=== PATIENT | male | born 1960 | race Caucasian/White ===

== ENCOUNTER 2025-03-26 18:04 | Observation (INO) | payer OTHER, SELFPAY ==
[2025-03-26] VITALS (7 sets, daily range): BP systolic 124–152; BP diastolic 73–90; BMI 27.0; BMI 26.6
[2025-03-26 13:34] LABS: Hematocrit 39.6 % (39.0-52.0); Hemoglobin 13.7 g/dL (13.0-18.0); Mean Corp Hgb Conc. 34.6 g/dL (33.0-37.0); Mean Corpuscular Volume 97.5 fL (80.0-94.0); Nucleated Red Blood Cells % 0 % (-); Platelet Count 178 10^3/uL (130-400); Red Cell Dist. Width 12.9 % (11.5-14.5)
[2025-03-26 13:47] LABS: ALT (SGPT) 35 U/L (0-50); AST (SGOT) 37 U/L (17-59); Albumin 4.3 g/dl (3.5-5.0); Alkaline Phosphatase 70 U/L (38-126); Blood Urea Nitrogen 26 mg/dl (9-20); Calcium 9.6 mg/dl (8.4-10.2); Carbon Dioxide 30 mmol/L (22-30); Chloride 103 mmol/L (98-107); Glucose 115 mg/dl (70-99); Potassium 4.3 mmol/L (3.5-5.1); Sodium 138 mmol/L (135-145); Total Protein 7.5 g/dl (6.3-8.2); eGFR > 60.00
[2025-03-26 13:53] LABS: Troponin I < 0.012 ng/ml
--- NOTE | 2025-03-26 15:34 | ED.GENMED ---
History of Present Illness
General
Chief Complaint: Chest Pain
Source: patient
Exam Limitations: none
Time Seen by Provider: 03/26/25 15:33
History of Present Illness
History of Present Illness:
64-year-old male started with some vague chest discomfort chronologically started after his son gave him a hug last night. Patient had the discomfort all night into this morning. Saw his primary physician. EKG there was stable. Sent over for
further evaluation. Apparently in the waiting room the symptoms became much more severe with more radiation to the upper back. Symptoms are quite uncomfortable at this time. History of same.
Past History
Past History
ED Past Medical History: Hypercholesterolemia
Social History
Tobacco: Non-smoker
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
Review of Systems
Review of Systems
All Other Systems: Not applicable
Constitutional: Denies fever
Phy Exam
Physical Exam
Physical Exam:
GENERAL: Aler nontoxic but appears very uncomfortableo significant adenopathy.
ENT: Pharynx without erythema
CARDIAC: Regular rate and rhythm without any obvious murmurs.
LUNGS: Clear breath sounds,normal
ABDOMEN: Soft, without focal tenderness or distention
NEUROLOGICAL: Alert and oriented , grossly non-focal
SKIN: Warm and dry, no rash or lesion, no discoloration, skin intact.
MUSCULOSKELETAL: No edema,no deformity.Good color
PSYCH: Normal and appropriate interaction.
Scores
Heart Score for Chest Pain Patients
STEMI patient?: No
History: Moderately Suspicious
ECG: Normal
Age: >45 - <65 years
Risk Factors: No Risk Factors
Troponin: </= Normal Limit
Heart Score for Chest Pain Patients: 2
Heart Score Risk: 2.5% MACE over next 6 weeks
Course
Orders/Labs/Results
Orders:
Orders
03/26/25 12:58
Electrocardiogram (*1) Urgent
Reason for Study: Chest Pain
EKG- Treatment ONCE
03/26/25 13:15
CXR2 [CR Chest - 2 Views ] Urgent
Comment:
Reason For Exam: chest pain
03/26/25 13:22
Complete Blood Count/With Diff Urgent
Comprehensive Metabolic Panel Urgent
Troponin I Urgent
03/26/25 15:41
Type+Screen Urgent
Electrocardiogram (*1) Stat
Reason for Study: Other
Other Reason for Exam: GI Bleed
Ct Chest/Abd/Pel Angio W/Wo Iv Stat
Reason For Exam: Sudden chest pain radiating to the back.
Cardiac Monitoring- Treatment ONCE
EKG- Treatment ONCE
IV Insert/Care/Rem.- Treatment PRN
0.9% Sodium Chloride 1000 ml [Nss] 1,000 ml IV BOLUS
HYDROmorphone [Dilaudid] 0.5 mg IV NOW STA
03/26/25 15:47
HYDROmorphone [Dilaudid] 0.5 mg IV NOW STA
03/26/25 16:04
Troponin I Urgent
03/26/25 16:15
Ketorolac [Toradol] 15 mg .ROUTE .STK-MED ONE
03/26/25 16:20
Ketorolac [Toradol] 15 mg IV NOW STA
03/26/25 17:29
Admit/Transfer Patient As Directed
Co-Sign Provider:
Level of Care: Observation services
Assign to:: Telemetry
Physician / Group: hospitalist
Diagnosis: unspecified chest pain
Reason for Telemetry: Chest Pain syndromes
Date to Stop Telemetry: 03/28/25
Time to Stop Telemetry: 11:00
PRN Pain Medication Management As Directed
May give lesser potent ordered pain med per pt: Yes
preference::
Protocol:: Medication orders for pain may be administered in a
manner that supports deferring to patient preference
when the pt is:
- Requesting an ordered lesser potent pain medication.
Least to most potent pain medications are defined
as: acetaminophen < NSAID < tramadol < opioids
(morphine, oxycodone, hydromorphone).
- Requesting a lesser dose of the same medication IF
ORDERED.
- Requesting a less intrusive route of administration
if both routes are prescribed by the provider (PO <
IV).
03/26/25 19:00
EKG [Electrocardiogram (*1)] Routine
Reason for Study: Chest Pain
03/26/25 22:00
Troponin I Routine
03/26/25 22:20
Ketorolac [Toradol] 15 mg IV Q6HPRN PRN
03/28/25 11:00
DC Protocol for Telemetry ONCE
Abnormal Lab Results
03/26/25
13:22
RBC 4.06 L 10^6/uL
(4.70-6.10)
MCV 97.5 H fL
(80.0-94.0)
MCH 33.7 H pg
(27.0-31.0)
Absolute Monos (auto) 0.8 H 10^3/uL
(0.1-0.6)
Monocytes % 11.5 H %
(1.7-9.3)
BUN 26 H mg/dl
(9-20)
Glucose 115 H mg/dl
(70-99)
03/26/25 13:22
03/26/25 13:22
Vital Signs
Initial and Last Documented VS:
Initial Vital Signs
Temp Pulse Resp BP Pulse Ox
98.8 F 92 16 127/83 98
03/26/25 13:12 03/26/25 13:12 03/26/25 13:12 03/26/25 13:12 03/26/25 13:12
Last Documented Vital Signs
Temp Pulse Resp BP Pulse Ox
98.8 F 91 29 126/90 97
03/26/25 13:12 03/26/25 19:45 03/26/25 19:45 03/26/25 19:00 03/26/25 19:45
*Radiology
Radiology exam reviewed: preliminary read by ED provider (Negative x-ray), radiology read reviewed (Tortuous aorta) and other (Negative CT angio)
*Pulse Oximetry
SaO2: 98
Oxygen Mode of Delivery: Room air
Patient hypoxic: no
*EKG
Interpretation: abnormal
Comparison EKG: no comparison EKG present
Heart Rate: 85
Rate: normal
Rhythm: sinus
[place]: normal axis
Interval: normal interval
QRS Pattern: right bundle branch block (inc)
Ischemia: no ischemia
*Critical Care Note
Total Time (30-74mins, 75-104mins- exclusive of procedures): 35
Update Note
Update Note:
Concern based on history appearance and comfort level of a dissection. Pain does radiate to his upper back. Stat CT angiography was ordered. Patient going over immediately. Pain management. Type and screen. Repeat cardiac testing for
completeness although if this was a primary cardiac issue I would have expect changes in troponin and EKG by now with continuous symptoms overnight. Again most immediately worried about a dissection.
1615... Repeat EKG right bundle branch block. No acute changes. Patient appears more comfortable. Although this may end up being all musculoskeletal patient was so uncomfortable on arrival with/concerning symptoms that he warrants inpatient pain
management and observation. I do not see any dissection or acute findings on CT. Reviewed with radiology. Repeat troponin pending
ED Attending Note
-
Portions of this chart may have been created with voice recognition software.� Occasional wrong word or��sound alike� substitutions may have occurred due to the inherent limitations of voice recognition software.
Discharge Plan
Departure
Patient Disposition: Admit
Date of Disposition: 03/26/25
Time of Disposition: 16:17
Presentation/result/management discussed w/ accepting MD/DO: Hospitalist
Discharge Problem:
Chest pain radiating to back
Interventions
Interventions:
*Risk Screen - Suicide Last Done: 03/26/25 13:12
*Neglect/Abuse Screening Last Done: 03/26/25 13:12
ED- Cardiac Assessment Last Done: 03/26/25 15:38
[2025-03-26] MEDS: DILAUDID 0.5 MG IV ×2 (15:59→18:52)
[2025-03-26] MEDS: NSS 1000 IV (15:59)
[2025-03-26] MEDS: TORADOL 15 MG IV ×2 (16:20→18:25)
--- NOTE | 2025-03-26 16:24 | W.PN.UPDATE ---
Update Note
Progress Note Update
This note serves as an addendum to the H&P by PGY3 Rhina Krueger
HPI�
64M No prior admission to seen at ER:
- acute onset of vague chest discomfort chronologically started after his son gave him a hug last night.
- the discomfort all night into this morning.
- Saw PCP - EKG there was stable. Then sent over for further evaluation.
- in the waiting room the symptoms became much more severe with more radiation to the upper back.
- Symptoms are quite uncomfortable at this time. History of same.
PHX
Relevant VS
Temp Pulse Resp BP Pulse Ox
98.8 F 95 28 127/83 98
03/26/25 13:12 03/26/25 16:15 03/26/25 16:15 03/26/25 13:12 03/26/25 16:15
PE
Gen: anxious and intense
HEENT: anicteric
Neck: supple
Lungs: CTA
Cor: RRR S1 S2 soft SM at apex
Abdomen:�soft benign
MANAGER DIVISION: AAO3
MS: no edema
Psych: anxious
Relevant Data
03/26/25
13:22
Troponin I < 0.012
03/26/25
13:22
RBC 4.06 L
MCV 97.5 H
MCH 33.7 H
Absolute Monos (auto) 0.8 H
Monocytes % 11.5 H
BUN 26 H
Glucose 115 H
EKG
NORMAL SINUS RHYTHM
RIGHT BUNDLE BRANCH BLOCK
MINIMAL VOLTAGE CRITERIA FOR LVH, MAY BE NORMAL VARIANT ( R in aVL )
ABNORMAL ECG
WHEN COMPARED WITH ECG OF 26-Mar-2025 13:04,
MINIMAL CRITERIA FOR INFERIOR INFARCT ARE NO LONGER PRESENT
Confirmed by MD GABY, CM Calles ([id number]) on 03/26/2025 4:34:05 PM
CXR
- Subtle linear densities within the left lower lung on the lateral view, just superior to the left hemidiaphragm, compatible with scarring and/or linear atelectasis.
- Cardiac silhouette size and vascular markings appear within normal limits with no evidence for pulmonary edema or pleural effusion.
- Tortuosity of the thoracic aorta with no radiographic evidence for thoracic aortic aneurysm.
CT Chest/abd/pelvis Angio W/wo
- No CTA evidence for an aortic dissection, aneurysm, or intramural hematoma.
- Calcified mediastinal and bilateral hilar lymph nodes
calcified splenic granulomas most compatible with a granulomatous process, possibly sarcoidosis.
- Small pulmonary nodules in the right middle lobe.
The [facility] Pulmonary Nodule Advisory Board will be notified.
NO prior hospitalist admission:
ASSESSMENT & PLAN
Pending Rx reconciliation
Acute onset of vague chest discomfort but atypical for cardiac origin - more like musculoslkeletal origin
NEG first TPNI
Non ischemic EKG
Unremarkable CTA A/AP/P for aortic dissection, aneurysm, or intramural hematoma.
- Trend TPNI
- EKG in AM
- If TPNI become trending up or significantly elevated to consider consult Card
HLD
- on atorvastatin 20mg daily
Noted Emtricitbime - Tenofovir as needed before intercourse per patient and he denied HX HIV
CTA suggest calcified mediastinal and bilateral hilar lymph nodes + calcified splenic granulomas most compatible with a granulomatous process, possibly sarcoid
- on Emtricitbime - Tenofovir as needed
DVT Px: LMWH
Full code
OBS TLM
[2025-03-26 16:46] LABS: Troponin I < 0.012 ng/ml
--- NOTE | 2025-03-26 17:25 | HPS.HSE ---
Family Physician
-
Family Physician: Dr. Juan J Valenzuela, [place], [place]
Chief Complaint
-
Chest and back pain
History of Present Illness
64 year old male with no significant pmh who presents with chest and back pain. He was in his usual state of health until 10:30 pm yesterday when he noticed 3/10 substernal chest pain. He denies any vigorous or new activities that could precipitate
onset, but he recalls that his adult son gave him a bear hug about an hour prior, lifting hip up his feet. He recalls taking 3 Ibuprofen pills at the time and retired to bed. He woke up around 4:30am with the pain being persistent. He contacted his
PCP's office in the morning and was seen at the office. There was no acute ECG changes and he was sent to the ED for further evaluation. While in the ED, he experienced significant worsening of pain, particularly sharp pain in posterior neck and
back.
At the time of my exam, he had received 0.5mg IV Dilaudid and 15mg Ketorolac and reported significant improvement. Currently reports 3/10 pain with mild exacerbation with deep breaths. He also recalls some improvement with stretching.
He had one episode of loose stool last night, with no recurrence. Denies fever/chills, prior cardiac history, neck stiffness.
Medical History
Past Medical History
Past Medical History: Reports None
Past Surgical History: Reports None
Social History
Tobacco: Non-smoker
Alcohol: Occasional
Drug: None
Personal:
Living: With Family
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
Family History
Family History: Not pertinent
Allergies / Home Medications
Allergies reflects when Allergies were last updated in [facility].
Home Medications with original date entered in [facility]
Allergy/Medication List:
Allergies
Allergy/AdvReac Type Severity Reaction Status Date / Time
ampicillin Allergy Rash Verified 03/26/25 13:14
If medication reconciliation has not been performed, why?: Medication List N/A
If Other, explain: Pt takes daily Truvada for PrEP, and PRN sildenafil and PRN tadalafil
Review of Systems
-
History Source: Patient
Constitutional: Denies Fever or Chills
Respiratory: Reports Cough (frequent morning cough); Denies Trouble Breathing
Cardiac: Reports Chest Pain; Denies Palpitations or Syncope
Abdomen/GI: Denies Abdominal Pain, Nausea, Vomiting, Diarrhea or Constipated
: Denies Dysuria, Difficulty Voiding or Bleeding
Neurological: Denies Dizzy
Physical Exam
Vital Signs
Vital Signs
Temp Pulse Resp BP Pulse Ox
98.8 F 95 28 127/83 98
03/26/25 13:12 03/26/25 16:15 03/26/25 16:15 03/26/25 13:12 03/26/25 16:15
Physical Exam
General: Well Developed, Well Nourished and Comfortable
HEENT: NormoCephalic, Anicteric, Moist mucous membranes and Atraumatic
Respiratory: Crackles (faint crackles in RLL), Non Labored Respirations and Other (nontender chest wall, non reproducible pain with active shoulder movement against resistance); No Wheezes, Rales or Rhonchi
Cardiac: S1/S2, Regular Rhythm and Murmur (systolic murmur, loudest in left 4th intercostal space); No Peripheral Edema or Calf Tenderness
GI: Soft, Non Tender, Non Distended and Normal Bowel Sounds
Genito-urinary: No costovertebral tender
Musculoskeletal: No Clubbing, No Cyanosis, No Edema and Other (No neck stiffness, no spinous process tenderness, chest and back nontender to palpation)
Skin: Warm and Dry
Neuro: Awake, Alert and Oriented
Psych: Anxious
Laboratory Results
-
03/26/25 13:22
03/26/25 13:22
Laboratory Results
Total Bilirubin 1.3 mg/dl (0.2-1.3) 03/26/25 13:22
AST 37 U/L (17-59) 03/26/25 13:22
ALT 35 U/L (0-50) 03/26/25 13:22
Alkaline Phosphatase 70 U/L (38-126) 03/26/25 13:22
Troponin I < 0.012 ng/ml 03/26/25 16:04
Impression/Plan
-
IMPRESSION:
64 year old male with no significant past medical history who presents with unspecified chest, neck and back pain
PLAN:
Chest pain:
Neck and back pain:
Unlikely ACS. Likley musculoskeletal. Troponin and EKG without concerning acute changes.
- Admit to Obsv on tele
- EKG x 2 with no acute changes. Will trend
- Trop x 2 wnl, will trend
- CXR without acute cardiopulmonary process, and CT chest/abd/pel CTA with no evidence of aortic dissection, aneurism or hematoma
- Will hold off cardiology consult unless EKG or trop trend is positive. Otherwise consider discharge in AM
Pulmonary nodules:
- Calcified hilar lymph nodes, pulmonary nodules in right middle lobe, noted on CT.
- Pt also reports chronic morning cough
- Pulmonary advisory board will follow
- Follow up with PCP
Diverticulosis:
- No acute diverticulitis
Splenic granulomatosis:
- Possible granulomatous disease.
- Will need outpt PCP follow up
DVT ppx: Lovenox
Code status: Full code
--- NOTE | 2025-03-26 20:30 | PTCARENOTE ---
Pt arrived onto floor @2029. Pt AAOx3 and able to ambulate into room without assistance. Pt with no complaints of SOB at this time. Pt oriented to room and call gil; will continue to monitor
[2025-03-26] MEDS: TYLENOL 650 MG PO (20:55)
[2025-03-26 22:56] LABS: Troponin I < 0.012 ng/ml
[2025-03-27 03:56] VITALS: BP 113/73
[2025-03-27] MEDS: DILAUDID 0.5 MG IV (04:03)
[2025-03-27 08:00] VITALS: BP 119/66
[2025-03-27] MEDS: TORADOL 15 MG IV (08:20)
--- NOTE | 2025-03-27 11:29 | W.PN.UPDATE ---
Update Note
Progress Note Update
I saw and evaluated the patient. I reviewed the resident�s note and agree with findings and plan as documented in the resident�s note.
CP has resolved. Patient describes his previous chest pain as pleuritic and sharp.
Gen: NAD, AAOx3.
Eyes: EOMI, PERRLA, no scleral icterus.
Neck: supple.
CV: RRR, +S1/S2, no m/r/g.
Resp: CTAB, no rales, wheezes, or rhonchi.
Abd: +BS, soft, NT, ND
Skin: No rashes.
MSK: CP is not reproducible with palpation of the chest
Neuro: CN 2-12 intact, non-focal.
Psych: Normal mood and affect.
CTA C/A/P: No CTA evidence for an aortic dissection, aneurysm, or intramural hematoma. Calcified mediastinal and bilateral hilar lymph nodes and calcified splenic granulomas most compatible with a granulomatous process, possibly sarcoidosis. Small
pulmonary nodules in the right middle lobe.
Chest, neck, and back pain:
-Patient states he had pleuritic chest pain after his son gave him a big 'bear hug' and 'lifted him up.'
-ECGs without acute ischemic changes
-Trops NEG x 3
-CTA C/A/P above and without acute findings to explain the pt's presenting symptoms
Pulmonary nodules:
- Calcified hilar lymph nodes, pulmonary nodules in right middle lobe, noted on CT.
- Pt also reports chronic morning cough
- Pulmonary advisory board will follow
- Follow up with PCP
Diverticulosis:
- No acute diverticulitis
Splenic granulomatosis:
- Possible granulomatous disease.
- Will need outpt PCP follow up
FULL/Lovenox
Medically cleared for discharge.
Total time spent on d/c = 31 min. This included today's physical exam, progress note, review of laboratory and diagnostic data, preparation of discharge documents and prescriptions, and discussions about the pt's hospital course and discharge plan
with the patient and other faculty i on call medical assistant involved in the patient's care.
[2025-03-27 12:04] VITALS: BP 128/71
--- NOTE | 2025-03-27 12:31 | W.PN.HOSP.TC ---
Today's Communication/Plan
-
Benign investigations follow-up with PCP
Assessment / Plan
Assessment / Plan
Patient is a 64-year-old male physically fit with no significant past medical history who presented on account of sudden onset left-sided chest pain sharp in nature/pleuritic.
But states that this occurred an hour after his son gave him a big hug.
Pain has been reducing since presentation on analgesics.
#Atypical Chest pain:
-Pleuritic > musculoskeletal
-Troponin (X3) and EKG without concerning acute changes.
-ECGs without acute ischemic changes
- CXR without acute cardiopulmonary process, and CT chest/abd/pel CTA with no evidence of aortic dissection, aneurism or hematoma
- Will hold off cardiology consult unless EKG or trop trend is positive. Otherwise consider discharge in AM
#Pulmonary nodules:
- Calcified hilar lymph nodes, pulmonary nodules in right middle lobe, noted on CT.
- Pt also reports chronic morning cough
- Pulmonary advisory board will follow
- Follow up with PCP
Splenic granulomatosis:
- Possible granulomatous disease.
- Will need outpatiet PCP follow up
Anticipated Discharge: Today
Subjective/Interval History
-
Date of Service: March 27, 2025
Pain is reduced
Objective Data
-
Vital Signs:
Vital Signs
Temp Pulse Resp BP Pulse Ox
98.3 F 89 16 128/71 97
03/27/25 12:04 03/27/25 12:04 03/27/25 12:04 03/27/25 12:04 03/27/25 12:04
I&O
03/26/25 03/27/25 03/28/25
06:59 06:59 06:59
Intake Total 480 / 480
Balance 480 / 480
Review of Systems
-
History Source: Patient
Constitutional: Reports No Symptoms
EENT: Reports No Symptoms Reported
Respiratory: Reports Cough (Occasional, morning)
Cardiac: Reports No Symptoms
Abdomen/GI: Reports No Symptoms
Genitourinary: Reports No Symptoms
Musculoskeletal: Reports Other (Patient is physically active, reports occasional thigh pain)
Neuro: Reports No Symptoms
Physical Exam
-
General: Well Developed, Well Nourished, No Apparent Distress and Comfortable; Negative Appears in Distress
HEENT: Normocephalic, Atraumatic and Moist Mucous Membranes
Respiratory: Clear to Auscultation and Other (Tenderness elicited by chest palpation)
Cardiac: Regular Rhythm and S1/S2
GI: Soft, Nontender and Nondistended
Musculoskeletal: No Clubbing, No Cyanosis and No Edema; Negative Clubbing, Cyanosis, Edema, Right Lower Extrem or Edema, Left Lower Extrem
Skin: Warm and Dry
Neuro: Awake, Alert, Oriented and AO x 3
Psych: Calm
Data Reviewed
-
Labs: Labs Reviewed by me, Discussed with Physician and Discussed with Patient
--- NOTE | 2025-03-27 12:46 | CM ---
Chart Reviewed. Met with patient at bedside dressed and ready for anticipated discharge. IA completed. OBS form given and placed in chart. Pt lives in 2.5 story house with his spouse. there are 3 steps to enter the home. NO hx HC, VN, SNF or DME. NO
insecurities identified. Verified PCP, Rx, insurance and drug coverage. Pt is independent of ADLs and IADLs.
Plan:D/C to home, no needs
PCP- Alissa Parham
Rx- [facility] in [place]
--- NOTE | 2025-03-27 14:59 | W.DCSUMMARY ---
Addendum entered and electronically signed by Kay Tello MD, Resident 04/03/25 12:19:
Prior to admission patient was not on any routine medication, he became clinically stable and was discharged without any medication to follow up with his primary care
Original Note:
Discharge Summary
Discharge Data
Date of Admission: 03/26/25
Date of Discharge: 03/27/25
-
Pending Results: No
Hospital Course
Discharging Physician : Kay Tello MD,
Disposition : Home
Primary care physician : Alissa Parham MD
Principal Discharge diagnosis : Chest, neck, and back pain
Splenic granulomatosis
Pulmonary nodules
Chronic Discharge diagnosis : Diverticulosis
Hospital Course :
64-year-old man with no significant medical history presented to the [facility] ED on 03/26/2025 following sudden onset of chest pain that occurred the day prior to presentation. Pain was not brought on by any significant activity and was not
significantly reduced with analgesics. There was a temporal association of being hugged tightly and picked up by his son. There is no associated chest palpitations, shortness of breath or dizziness. But endorses occasional morning cough.
He denies any history of fever ill health sick contacts or travel.
On presentation to the ED he was in obvious pain distress vital signs were stable. Due to concerns for [place]/dissection he had EKG troponin CT scan done which showed no significant finding.
He was admitted for observation however with clinical improvement and non rising troponin titre, he was discharged for outpatient follow-up with his PCP
Important imaging findings :
CT Chest/abd/pelvis Angio W/wo (03/26/2025)
No CTA evidence for an aortic dissection, aneurysm, or intramural hematoma.
Calcified mediastinal and bilateral hilar lymph nodes and calcified splenic granulomas most compatible with a granulomatous process, possibly sarcoidosis.
Small pulmonary nodules in the right middle lobe.
Discharge Plan
-
Patient Disposition: Home (Routine Discharge)
Discharge Diagnosis/Procedures: Chest pain: Pleuritic VS Musculoskeletal
Pulmonary nodule
Splenic granulomatosis
Condition: Good
Diet: No restrictions
Activity: As tolerated
Driving Restrictions: As prior to admission
Bathing Restrictions: None
Referrals:
Alissa Parham MD [Non-Admitting Privileges, Family Practice] - in less than 1 week
Jett Oviedo MD [Active, Pulmonary Medicine] - in two to four weeks
Referral Note: pulm nodules
UNKNOWN - PT NOT,INTERVIEWE [Family Provider]
Discharge Orders:
Discharge Patient (As Directed); Ordered 03/27/25
Ordered By: Mauricio Corona
Discharge Date and Time
Discharge Date/Time: 03/27/25 13:24
Print Language: PRYDEINIG
--- NOTE | 2025-04-01 14:28 | OID.L.PAT ---
Pulmonary Nodule Pat Letter
- -
04/01/25
HAWK ZARATE
[address]
[place] [address]
Deagretchen ARECHIGA,
A pulmonary nodule was seen on an imaging study done by [facility]. This was reviewed by the [facility] Pulmonary Nodule Advisory Board and the following recommendation was made:
Recommendation: Follow up CT Chest in 3 months.
If you have any questions, please do not hesitate to contact your primary care physician. If you are in need of a Physician, you can go to [email or web address] and click on 'Find a Provider'. Type 'Family Medicine' in the search.
Oncology Nurse Navigator
[facility]
[phone]
--- NOTE | 2025-04-01 14:28 | OID.L.REC ---
Pulmonary Nodule Follow Up
- Recommendation
04/01/25
Pulmonary Nodule Review Recommendations
Your patient, HAWK ZARATE, had a pulmonary nodule seen on an imaging study done on 03/26/2025 in the [facility] Emergency Department.
This was reviewed by the [facility] Pulmonary Nodule Advisory Board and the following recommendation was made:
Recommendation: Follow up CT Chest in 3 months.
If you have any questions, please do not hesitate to contact us.
Sincerely,
Oncology Nurse Navigator
[facility]
[phone]
== END 2025-03-27 13:24 | disposition home or self-care (01) ==
LOC: 4 WEST ACU 18:04
PROVIDERS: Emergency Medicine; Student in an Organized Health Care Education/Training Program; ADMITTING PHYSICIAN Internal Medicine; ATTENDING PHYSICIAN Internal Medicine; EMERGENCY PHYSICIAN Emergency Medicine
DX: R07.89 Other chest pain (principal); E78.00 Pure hypercholesterolemia, unspecified; M54.9 Dorsalgia, unspecified; I45.10 Unspecified right bundle-branch block; R05.9 Cough, unspecified; R91.8 Other nonspecific abnormal finding of lung field; K57.30 Diverticulosis of large intestine without perforation or abscess without bleeding; J98.4 Other disorders of lung; L92.8 Other granulomatous disorders of the skin and subcutaneous tissue; Z88.0 Allergy status to penicillin
CPT/HCPCS: 71046; 71275; 74174; 80053; 84484; 85025; 93005; 96361; 96374; 96375; 99291; G0378; Q9967